=== PATIENT | female | born 1995 | race African-American/Black ===

== ENCOUNTER 2022-12-01 18:32 | Observation (INO) | payer MEDICAID, OTHER ==
[2022-12-01] MEDS ORDERED: hydrALAZINE 20 MG/ML VIAL SLOW IVP PRN (19:01)
[2022-12-01 19:05] VITALS: BMI 36.5
[2022-12-01 20:01] LABS: SARS-CoV-2 NAA Rapid Test Not Detected (NotDetected)
[2022-12-01 20:08] LABS: Bilirubin Neg (Negative); Blood, Urine 10 (Negative); Glucose, Urine (Dipstick) Normal (Negative); Ketone, Urine Negative (Negative); Leukocyte 500 (Negative); Nitrite Positive (Negative); Protein, Urine (Dipstick) Negative (Neg-Trace); Urobilinogen Normal mg/dL (Less than 2)
[2022-12-01 20:11] LABS: Clarity Slightly Cloudy (Clear)
[2022-12-01 20:17] LABS: Bacteria/HPF 3+ HPF (None Seen); CAUTI Indications for Culture Fever or rigors
[2022-12-01 20:19] LABS: Urine Culture Reflex Yes Yes
[2022-12-01 20:20] LABS: #Basophils 0.1 10x3/uL (0.0-0.2); #Eosinphils 0.4 10x3/uL (0.0-0.5); #Monocytes 1.4 10x3/uL (0.0-1.1); #Neutrophils 8.9 10x3/uL (1.5-8.4); %Basophils 0.4 % (0.0-2.0); %Eosinophils 3.1 % (0.0-6.0); %Lymphocytes 19.5 % (18.0-47.0); %Monocytes 10.2 % (0.0-10.0); %Neutrophils 64.6 % (40.0-75.0); Hemoglobin 9.7 g/dL (12.0-15.5); Mean Corpuscular HGB CONC 33.6 g/dL (32.0-36.0); Mean Corpuscular Hemoglobin 26.3 pg (27.0-33.0); Mean Corpuscular Volume 78.3 fl (81.6-98.3); Mean Platelet Volume 10.1 fl (7.4-10.4); Platelet Count 407 10x3/uL (150-450); RBC Distribution Width 13.9 % (11.5-14.5); Red Blood Cell (RBC) Count 3.69 10x6/uL (3.90-5.03); White Blood Cell (WBC) Count 13.9 10x3/uL (3.5-10.5)
[2022-12-01] MEDS ORDERED: Promethazine HCl 25 MG/ML VIAL IM PRN (20:29)
[2022-12-01] MEDS ORDERED: Ondansetron PF 4 MG/2 ML Vial IVP PRN (20:29)
[2022-12-01 20:31] LABS: Fetal Membranes Rupture No Membranes Rupture (No Rupture)
[2022-12-01 20:42] LABS: Anion Gap 15 mmol/L (10-20); BUN (Urea Nitrogen) 5 mg/dL (7.0-18.7); Calc. Creatinine Clearance 197 mL/min (70-130); Carbon Dioxide 18 mmol/L (22-29); Chloride 106 mmol/L (98-107); Potassium 3.6 mmol/L (3.5-5.1); Sodium 135 mmol/L (136-145)
[2022-12-01 20:43] LABS: ALT (SGPT) 16 U/L (8-55); AST (SGOT) 18 U/L (5-34); Albumin 3.3 g/dL (3.5-5.0); Alkaline Phosphatase 91 U/L (40-110); Bilirubin, Total 0.3 mg/dL (0.2-1.2); Calcium 9.2 mg/dL (7.8-10.44); Estimated GFR 119; Globulin 3.8 g/dL (2.4-3.5); Glucose 81 mg/dL (70-105); Protein, Total 7.1 g/dL (6.0-8.3)
[2022-12-01] MEDS: cefTRIAXone\\ROCEPHIN 1 GM in Sodium Chloride 0.9% 100 ML IVPB SCH (21:11)
[2022-12-01] MEDS ORDERED: Sodium Chloride 0.9% 1,000 ML IV SCH (21:15)
[2022-12-01] MEDS: Acetaminophen 500 MG TAB PO PRN (21:22)
[2022-12-02 03:56] LABS: Amphetamine Not Detected (NotDetected); Barbiturates Screen Not Detected (NotDetected); Benzodiazepine Screen Not Detected (NotDetected); Cocaine Metabolite Screen Not Detected (NotDetected); Methadone Not Detected (NotDetected); Methamphetamine Not Detected (NotDetected); Opiate Screen Not Detected (NotDetected); Oxycodone Screen Not Detected (NotDetected); Phencyclidine (PCP) Not Detected (NotDetected); THC/Cannabinoid Screen Not Detected (NotDetected); Tricyclic Screen Not Detected (NotDetected)
[2022-12-02 04:42] LABS: HBSAg Index 0.14 S/CO (0-0.99); Hep B Surf Ag Non-Reactive S/CO (NonReactive); Thyroid Stimulating Hormone 0.6719 uIU/mL (0.35-4.94)
[2022-12-02] MEDS: Acetaminophen 500 MG TAB PO PRN ×2 (05:54→11:40)
[2022-12-02] MEDS ORDERED: diphenhydrAMINE 25 MG CAP PO PRN (11:39)
[2022-12-02] MEDS ORDERED: Iron, Sodium Ferric Gluconate 250 MG in Sodium Chloride 0.9% 250 ML 250 ML IVPB SCH (11:45)
[2022-12-02 13:17] LABS: Hep C IgG Ab Non-Reactive (NonReactive); Hep C Index 0.07 S/CO (0-0.79)
[2022-12-02] MEDS ORDERED: Acetaminophen 500 MG TAB PO PRN (16:05)
[2022-12-02] MEDS ORDERED: Lactated Ringer's 1,000 ML IV SCH (16:15)
[2022-12-02] MEDS ORDERED: Morphine 2 MG/ML VIAL SLOW IVP SCH (17:00)
[2022-12-02 18:37] LABS: #Eosinphils 0.2 10x3/uL (0.0-0.5); #Monocytes 1.3 10x3/uL (0.0-1.1); #Neutrophils 8.9 10x3/uL (1.5-8.4); %Basophils 0.2 % (0.0-2.0); %Eosinophils 1.6 % (0.0-6.0); %Lymphocytes 14.5 % (18.0-47.0); %Monocytes 10.2 % (0.0-10.0); %Neutrophils 71.7 % (40.0-75.0); Hemoglobin 9.5 g/dL (12.0-15.5); Mean Corpuscular HGB CONC 33.7 g/dL (32.0-36.0); Mean Corpuscular Hemoglobin 26.3 pg (27.0-33.0); Mean Corpuscular Volume 78.1 fl (81.6-98.3); Platelet Count 395 10x3/uL (150-450); Red Blood Cell (RBC) Count 3.61 10x6/uL (3.90-5.03); White Blood Cell (WBC) Count 12.5 10x3/uL (3.5-10.5)
[2022-12-02 18:47] LABS: ALT (SGPT) 21 U/L (8-55); AST (SGOT) 19 U/L (5-34); Albumin 3.1 g/dL (3.5-5.0); Alkaline Phosphatase 85 U/L (40-110); Anion Gap 17 mmol/L (10-20); BUN (Urea Nitrogen) 6 mg/dL (7.0-18.7); Bilirubin, Total 0.3 mg/dL (0.2-1.2); Calc. Creatinine Clearance 203 mL/min (70-130); Calcium 8.6 mg/dL (7.8-10.44); Carbon Dioxide 19 mmol/L (22-29); Chloride 108 mmol/L (98-107); Estimated GFR 121; Globulin 3.5 g/dL (2.4-3.5); Glucose 72 mg/dL (70-105); Lipase 52 U/L (8-78); Potassium 3.5 mmol/L (3.5-5.1); Protein, Total 6.6 g/dL (6.0-8.3); Sodium 140 mmol/L (136-145)
[2022-12-02] MEDS: cefTRIAXone\\ROCEPHIN 1 GM in Sodium Chloride 0.9% 100 ML IVPB SCH (20:50)
[2022-12-02] MEDS: Acetaminophen 325 MG TAB PO PRN (21:03)
[2022-12-03] MEDS: Acetaminophen 325 MG TAB PO PRN ×2 (04:52→10:56)
[2022-12-03] MEDS ORDERED: Ferrous Gluconate 324 MG TAB PO SCH (08:00)
[2022-12-03] MEDS ORDERED: Prenatal Vitamin 1 TAB PO SCH (09:00)
[2022-12-03 11:04] VITALS: BP 91/54; TEMP 97.5
[2022-12-03] MEDS ORDERED: Cepastat Lozenges 1 LOZ PO PRN (11:45)
[2022-12-03 12:05] LABS: SARS-CoV-2 NAA Rapid Test DETECTED (NotDetected)
[2022-12-03] MEDS ORDERED: NIRMATRELVIR 150 MG/RITONAVIR 100 MG PO SCH ×2 (13:30→21:00)
[2022-12-04] MEDS ORDERED: Aspirin 81 mg Enteric Coated Tablet PO SCH (09:00)
== END 2022-12-03 16:50 | disposition home health service (06) ==
LOC: CSHLD/OP 18:32 → CSHLD 20:59 → CSHANTE 21:33
PROVIDERS: ADMIT Student in an Organized Health Care Education/Training Program; ATTEND Student in an Organized Health Care Education/Training Program
DX: O23.03 Infections of kidney in pregnancy, third trimester (principal); O99.891 Other specified diseases and conditions complicating pregnancy; N13.30 Unspecified hydronephrosis; M54.50 Low back pain, unspecified; O47.03 False labor before 37 completed weeks of gestation, third trimester; O98.513 Other viral diseases complicating pregnancy, third trimester; U07.1 COVID-19; O99.013 Anemia complicating pregnancy, third trimester; D57.3 Sickle-cell trait; D50.9 Iron deficiency anemia, unspecified; O42.913 Preterm premature rupture of membranes, unspecified as to length of time between rupture and onset of labor, third trimester; O99.513 Diseases of the respiratory system complicating pregnancy, third trimester; J02.9 Acute pharyngitis, unspecified; O99.343 Other mental disorders complicating pregnancy, third trimester; F41.9 Anxiety disorder, unspecified; F32.A Depression, unspecified; O99.353 Diseases of the nervous system complicating pregnancy, third trimester; G43.109 Migraine with aura, not intractable, without status migrainosus; O99.213 Obesity complicating pregnancy, third trimester; E66.9 Obesity, unspecified; Z3A.33 33 weeks gestation of pregnancy; Z88.1 Allergy status to other antibiotic agents; Z91.040 Latex allergy status; Z79.899 Other long term (current) drug therapy; Z87.440 Personal history of urinary (tract) infections
CPT/HCPCS: 36415; 51701; 59025; 76770; 80053; 80306; 81001; 82728; 83690; 84112; 84443; 85025; 86762; 86803; 86850; 86900; 86901; 87077; 87086; 87186; 87340; 87480; 87510; 87660; 96374; 96375; 96376; 99285; G0378; J0696; J2272; J2405; J2916; J3490; J7050; J7120; U0002